=== PATIENT | female | born 1975 | race African-American/Black ===

== ENCOUNTER 2021-01-07 17:14 | Observation (INO) | payer SELFPAY ==
[2021-01-07] MEDS ORDERED: Aspirin Chewable 81 MG TAB ONE (20:08)
[2021-01-07 20:16] LABS: Bilirubin Neg (Negative); Blood, Urine Negative (Negative); Clarity Clear (Clear); Glucose, Urine (Dipstick) Normal (Negative); Ketone, Urine Negative (Negative); Leukocyte Negative (Negative); Nitrite Negative (Negative); Protein, Urine (Dipstick) Negative (Neg-Trace); Specific Gravity, Urine 1.005 (1.002-1.036); Urobilinogen Normal mg/dL (Less than 2)
[2021-01-07 20:26] LABS: Hemoglobin 7.1 g/dL (12.0-15.5); Mean Corpuscular Hemoglobin 18.9 pg (27.0-33.0); Mean Corpuscular Volume 65.3 fl (81.6-98.3); Platelet Count 200 10x3/uL (150-450); RBC Distribution Width 18.3 % (11.5-14.5); Red Blood Cell (RBC) Count 3.75 10x6/uL (3.90-5.03)
[2021-01-07 20:34] LABS: ALT (SGPT) 16 U/L (8-55); AST (SGOT) 30 U/L (5-34); Albumin 4.6 g/dL (3.5-5.0); Alkaline Phosphatase 69 U/L (40-110); Anion Gap 17 mmol/L (10-20); BUN (Urea Nitrogen) 10 mg/dL (7.0-18.7); Bilirubin, Total 0.5 mg/dL (0.2-1.2); CK (CPK) 421 U/L (29-168); Calc. Creatinine Clearance 0 mL/min (70-130); Calcium 9.9 mg/dL (7.8-10.44); Carbon Dioxide 22 mmol/L (22-29); Chloride 104 mmol/L (98-107); Eosinophils 7 % (0-10); Globulin 3.7 g/dL (2.4-3.5); Glucose 83 mg/dL (70-105); Lipase 18 U/L (8-78); Lymphocytes 9 % (21-51); Monocytes 5 % (0-10); Potassium 3.6 mmol/L (3.5-5.1); Protein, Total 8.3 g/dL (6.0-8.3); Reactive Lymphocytes 1 % (0-10); Sodium 139 mmol/L (136-145)
[2021-01-07 20:35] LABS: MDiff Complete? YES; Manual Diff?? YES; Neutrophil 78 % (42-75); Platelet Morphology Comment Appears Adequate
[2021-01-07 20:37] LABS: Elliptocytes SLIGHT = 2-5 cells (100X) (0-1/hpf)
[2021-01-07 20:38] LABS: Anisocytosis SLIGHT = 6-15 cells (100X) (0-5/hpf); Hypochromia MODERATE=16-30 cells (100X) (0-5/hpf); Macrocytosis SLIGHT = 6-15 cells (100X) (0-5/hpf); Microcytosis SLIGHT = 6-15 cells (100X) (0-5/hpf); Target Cells SLIGHT = 2-5 cells (100X) (0-1/hpf)
[2021-01-07] MEDS ORDERED: Ondansetron PF 4 MG/2 ML Vial IVP PRN (21:51)
[2021-01-07] MEDS ORDERED: HYDROcodone/Acetaminophen 5/325 mg Tablet PO PRN (21:51)
[2021-01-07] MEDS ORDERED: Zolpidem Tartrate 5 MG TAB PO PRN (21:51)
[2021-01-07] MEDS ORDERED: Calcium Carbonate 500 MG ChewTAB PO PRN (21:51)
[2021-01-07] MEDS ORDERED: Senokot S 8.6-50 MG TAB PO PRN (21:51)
[2021-01-07] MEDS ORDERED: Acetaminophen 325 MG TAB PO PRN (21:51)
[2021-01-08 01:39] VITALS: BMI 38.2
[2021-01-08 01:48] LABS: Pregu Control Background? CLEAR/WHITE (CLR/WHITE); Pregu Control Bar Appear? YES (CONTROL BAR); Specific Gravity 1.005 (1.002-1.036)
[2021-01-08 01:52] LABS: Pregnancy Test - Urine (BHCG) Negative (Negative)
[2021-01-08 02:22] LABS: SARS-CoV-2 NAA Rapid Test Not Detected (NotDetected)
[2021-01-08] MEDS ORDERED: Iron, Sodium Ferric Gluconate 250 MG in Sodium Chloride 0.9% 250 ML 250 ML IVPB SCH (06:00)
[2021-01-08 06:26] LABS: Anion Gap 14 mmol/L (10-20); BUN (Urea Nitrogen) 11 mg/dL (7.0-18.7); CK (CPK) 268 U/L (29-168); Calc. Creatinine Clearance 135 mL/min (70-130); Calcium 9.5 mg/dL (7.8-10.44); Carbon Dioxide 22 mmol/L (22-29); Chloride 110 mmol/L (98-107); Glucose 92 mg/dL (70-105); Potassium 3.7 mmol/L (3.5-5.1); Sodium 142 mmol/L (136-145)
[2021-01-08] MEDS ORDERED: Budesonide 0.5 MG/2 ML NEB NEB SCH (06:30)
[2021-01-08 06:42] LABS: #Basophils 0.1 10x3/uL (0.0-0.2); #Eosinphils 0.4 10x3/uL (0.0-0.5); #Monocytes 0.7 10x3/uL (0.0-1.1); #Neutrophils 5.4 10x3/uL (1.5-8.4); %Basophils 0.7 % (0.0-2.0); %Eosinophils 5.8 % (0.0-6.0); %Lymphocytes 11.5 % (18.0-47.0); %Monocytes 9.7 % (0.0-10.0); %Neutrophils 71.9 % (40.0-75.0); Hemoglobin 7.6 g/dL (12.0-15.5); Mean Corpuscular HGB CONC 29.3 g/dL (32.0-36.0); Mean Corpuscular Hemoglobin 20.1 pg (27.0-33.0); Mean Corpuscular Volume 68.3 fl (81.6-98.3); Mean Platelet Volume 11.4 fl (7.4-10.4); Platelet Count 180 10x3/uL (150-450); RBC Distribution Width 19.8 % (11.5-14.5); Red Blood Cell (RBC) Count 3.79 10x6/uL (3.90-5.03); White Blood Cell (WBC) Count 7.6 10x3/uL (3.5-10.5)
[2021-01-08 06:49] LABS: Hypochromia MODERATE=16-30 cells (100X) (0-5/hpf); Microcytosis MODERATE=15-30 cells (100X) (0-5/hpf); Platelet Morphology Comment Appears Adequate; Poikilocytosis SLIGHT = 6-15 cells (100X) (0-5/hpf)
[2021-01-08] MEDS ORDERED: Hydrochlorothiazide 25 MG TAB PO SCH (09:00)
[2021-01-08] MEDS ORDERED: Multivitamin W/ Minerals 1 TAB PO SCH (09:00)
[2021-01-08] MEDS ORDERED: Ferrous Sulfate 325 MG TAB PO SCH (09:00)
[2021-01-08] MEDS ORDERED: Famotidine 20 MG TAB PO SCH (09:00)
[2021-01-08] MEDS ORDERED: Lisinopril 20 MG TAB PO SCH (09:00)
[2021-01-08] MEDS ORDERED: Docusate 100 MG CAP PO PRN (14:19)
[2021-01-08 15:24] VITALS: BP 135/78; TEMP 98.3
[2021-01-08] MEDS ORDERED: Furosemide 20 MG/2 ML VIAL SLOW IVP SCH (16:30)
[2021-01-08 16:55] LABS: Hemoglobin 8.3 g/dL (12.0-15.5); Platelet Count 161 10x3/uL (150-450)
[2021-01-08] MEDS ORDERED: traMADol HCl 50 MG TAB PO SCH (18:00)
[2021-01-09] MEDS ORDERED: PARoxetine 20 MG TAB PO SCH (09:00)
[2021-01-09] MEDS ORDERED: Lisinopril 20 MG TAB PO SCH (09:00)
[2021-01-09] MEDS ORDERED: Prenatal Vitamin 1 TAB PO SCH (09:00)
== END 2021-01-08 18:45 | disposition home or self-care (01) ==
LOC: CSHERS 17:14 → CSHTELE 22:32 → INTOOBSV 22:32
PROVIDERS: ADMIT Student in an Organized Health Care Education/Training Program; ATTEND Hospitalist
DX: D62 Acute posthemorrhagic anemia (principal); R55 Syncope and collapse; N93.9 Abnormal uterine and vaginal bleeding, unspecified; Z79.899 Other long term (current) drug therapy; J44.9 Chronic obstructive pulmonary disease, unspecified; I10 Essential (primary) hypertension; F17.210 Nicotine dependence, cigarettes, uncomplicated; Z20.822 Contact with and (suspected) exposure to COVID-19
CPT/HCPCS: 36415; 36430; 71045; 80048; 80053; 81003; 81025; 82550; 83605; 83690; 83880; 84484; 85025; 86850; 86900; 86901; 93005; 94640; G0378; J1940; J7626; P9016; U0002

== ENCOUNTER 2021-05-25 12:22 | Emergency (ER) | payer OTHER, SELFPAY ==
[2021-05-25] MEDS ORDERED: Ketorolac Tromethamine 30 MG/ML VIAL ONE (14:20)
[2021-05-25 14:50] LABS: Bilirubin Neg (Negative); Blood, Urine 150 (Negative); Clarity Clear (Clear); Glucose, Urine (Dipstick) Normal (Negative); Ketone, Urine Negative (Negative); Leukocyte Negative (Negative); Nitrite Negative (Negative); Protein, Urine (Dipstick) Negative (Neg-Trace); Urobilinogen Normal mg/dL (Less than 2)
[2021-05-25 15:02] LABS: #Basophils 0.1 10x3/uL (0.0-0.2); #Eosinphils 0.3 10x3/uL (0.0-0.5); #Monocytes 0.3 10x3/uL (0.0-1.1); #Neutrophils 2.7 10x3/uL (1.5-8.4); %Basophils 1.6 % (0.0-2.0); %Eosinophils 6.7 % (0.0-6.0); %Lymphocytes 22.9 % (18.0-47.0); %Monocytes 7.3 % (0.0-10.0); %Neutrophils 61.3 % (40.0-75.0); Hemoglobin 6.7 g/dL (12.0-15.5); Mean Corpuscular Hemoglobin 17.2 pg (27.0-33.0); Mean Corpuscular Volume 63.8 fl (81.6-98.3); Platelet Count 383 10x3/uL (150-450); RBC Distribution Width 19.5 % (11.5-14.5); Red Blood Cell (RBC) Count 3.89 10x6/uL (3.90-5.03); White Blood Cell (WBC) Count 4.4 10x3/uL (3.5-10.5)
[2021-05-25 15:04] LABS: Bacteria/HPF None Seen HPF (None Seen); RBC/HPF 0-3 HPF (0-3); Squamous Epithelial 0-3 HPF (0-3); WBC/HPF 0-3 HPF (0-3)
[2021-05-25 15:04] LABS: ALT (SGPT) 7 U/L (8-55); AST (SGOT) 18 U/L (5-34); Albumin 4.7 g/dL (3.5-5.0); Alkaline Phosphatase 72 U/L (40-110); Anion Gap 13 mmol/L (10-20); BUN (Urea Nitrogen) 8 mg/dL (7.0-18.7); Bilirubin, Total 0.3 mg/dL (0.2-1.2); Calc. Creatinine Clearance 0 mL/min (70-130); Calcium 9.6 mg/dL (7.8-10.44); Carbon Dioxide 25 mmol/L (22-29); Chloride 106 mmol/L (98-107); Globulin 3.7 g/dL (2.4-3.5); Glucose 90 mg/dL (70-105); Protein, Total 8.4 g/dL (6.0-8.3); Sodium 140 mmol/L (136-145)
[2021-05-25 15:45] LABS: PTT 21.6 sec (22.0-33.0); Prothrombin Time 11.3 sec (9.5-12.1)
[2021-05-25] MEDS ORDERED: Morphine 4 MG/ML VIAL ONE (15:46)
[2021-05-25] MEDS ORDERED: Ondansetron PF 4 MG/2 ML Vial ONE (15:47)
[2021-05-25 17:01] LABS: Anisocytosis SLIGHT = 6-15 cells (100X) (0-5/hpf); Microcytosis MODERATE=15-30 cells (100X) (0-5/hpf)
[2021-05-25 17:02] LABS: Hypochromia MARKED = >30 cells (100X) (0-5/hpf); Ovalocytes SLIGHT = 2-5 cells (100X) (0-1/hpf); Stomatocytes SLIGHT = 2-5 cells (100X) (0-1/hpf); Target Cells SLIGHT = 2-5 cells (100X) (0-1/hpf)
[2021-05-25 17:03] LABS: Giant Platelets SLIGHT; Large Platelets SLIGHT; Platelet Morphology Comment Appears Adequate; Tear Drops SLIGHT = 2-5 cells (100X) (0-1/hpf)
== END 2021-05-25 22:50 | disposition home or self-care (01) ==
LOC: CSHERS 12:22
DX: R10.12 Left upper quadrant pain (principal); D64.9 Anemia, unspecified; D21.9 Benign neoplasm of connective and other soft tissue, unspecified; I11.0 Hypertensive heart disease with heart failure; I50.9 Heart failure, unspecified; J44.9 Chronic obstructive pulmonary disease, unspecified; F17.210 Nicotine dependence, cigarettes, uncomplicated; Z86.73 Personal history of transient ischemic attack (TIA), and cerebral infarction without residual deficits
CPT/HCPCS: 36430; 74176; 80053; 81003; 81015; 82728; 83540; 85025; 85610; 85730; 86850; 86870; 86900; 86901; 86905; 86922; 96374; 96375; J1885; J2270; J2405; P9016